=== PATIENT | male | born 1980 | race Caucasian/White ===

== ENCOUNTER 2020-09-01 19:26 | Inpatient (IN) | payer BC, SELFPAY ==
[2020-09-01 19:31] VITALS: BP 135/85; BP 147/94; PULSE 103; PULSE 92; RESP 16; TEMP 38.8; O2SAT 97; O2SAT 98; BMI 27.3
--- NOTE | 2020-09-01 19:36 | XR_ITS ---
EXAMINATION: CHEST 1 VIEW CLINICAL INFORMATION: Pain. COMPARISON: August 29, 2015. TECHNIQUE: An AP view of the chest is provided. FINDINGS: The cardiac silhouette is not enlarged. The mediastinal and hilar contours are unremarkable. There are neither pleural effusions nor pneumothoraces. There are no consolidations. The osseous structures are unremarkable. XR/XR chest 1V IMPRESSION: No evidence for acute disease.
--- NOTE | 2020-09-01 19:37 | ECG_ITS ---
Test Reason : ABDOMINAL PAIN Blood Pressure : / mmHG Vent. Rate : 092 BPM Atrial Rate : 092 BPM P-R Int : 130 ms QRS Dur : 094 ms QT Int : 326 ms P-R-T Axes : 033 035 061 degrees QTc Int : 403 ms Normal sinus rhythm Nonspecific T wave abnormality Abnormal ECG No previous ECGs available Referred By: Chandrika Brandt Electronically Signed By:HUY NEVES MD
--- NOTE | 2020-09-01 19:38 | PC.NURSE ---
PLANT ASSOCIATE at bedside.
--- NOTE | 2020-09-01 19:55 | PC.NURSE ---
Pt is CAOx4, speaking full sentences, ambulating with a null/steady gait, arrives by EMS. Skin warm, pink, dry. Second IV line established, all labs obtained including BCX x 2 and lactic. Pt providing urine sample, Covid swab obtained and sent for analysis. Pt resting in bed at this time, call vance within reach. Pt aware of plan to CT, continue to monitor.
[2020-09-01 19:56] LABS: MANUAL DIFF FLAG NO
[2020-09-01 20:00] LABS: Basophils Percent Auto 0.2 % (0-2); Eosinophils Absolute Auto 0.2 X10*3/uL (0.0-0.4); Eosinophils Percent Auto 0.9 % (0-4); Hematocrit 45.3 % (42-52); Hemoglobin 15.6 g/dl (14.0-18.0); Imm Gran Abs Auto 0.03 X10*3/uL (0.00-0.03); Imm Gran Pct Auto 0.2 % (0.0-0.4); Lymphocytes Absolute Auto 1.5 X10*3/uL (1.2-4.9); Lymphocytes Percent Auto 9.1 % (20-40); Mean Corpuscular HGB Conc 34.4 g/dl (31.0-36.0); Mean Corpuscular Hemoglobin 32.6 pg (27.0-33.0); Mean Corpuscular Volume 94.6 fL (80-98); Mean Platelet Volume 9.6 fL (9.4-12.4); Monocytes Absolute Auto 1.1 X10*3/uL (0.1-1.2); Monocytes Percent Auto 6.8 % (2-11); Neutrophils Absolute Auto 13.4 X10*3/uL (2.0-8.3); Neutrophils Percent Auto 82.8 % (45-73); Platelet Count 225 X10*3/uL (160-400); Red Blood Count 4.79 X10*6/uL (4.60-5.80); Red Cell Distribution Width 11.3 % (11.0-16.0); White Blood Count 16.1 X10*3/uL (4.8-10.8)
[2020-09-01] MEDS: Morphine Sulfate 4 MG/ML CARTRIDGE IVPUSH (20:02)
[2020-09-01] MEDS: Piperacillin Sodium/Tazobactam 3.375 GM in 0.9 % Sodium Chloride 50 ML IV (20:03)
[2020-09-01] MEDS: ondansetron HCL 4 MG/2 ML VIAL IVPUSH (20:03)
[2020-09-01] MEDS: 0.9 % Sodium Chloride 1,000 ML 30 ML IV (20:03)
[2020-09-01 20:12] LABS: Prothrombin Time 11.4 SEC (10.8-13.0)
[2020-09-01 20:14] LABS: Lactic Acid 1.9 mmol/L (0.5-2.0)
[2020-09-01 20:15] LABS: Partial Thromboplastin Time 34.8 SEC (24.1-38.0)
[2020-09-01 20:19] LABS: Appearance Urine CLEAR; Color Urine YELLOW; Glucose Urine UA NEG (NEG); Leukocyte Esterase Urine NEG (NEG); Nitrite Urine NEG (NEG); PH 7.5 (5.0-8.0); Urine Blood NEG (NEG); Urine Ketones NEG (NEG); Urine Protein NEG (NEG-TRACE)
[2020-09-01 20:20] LABS: Alanine Aminotransferase 23 U/L (0-40); Albumin Level 4.8 g/dL (3.5-5.0); Alkaline Phosphatase 82 U/L (39-117); Anion Gap 15 (12-20); Aspartate Amino Transferase 24 U/L (5-37); Bilirubin Direct 0.2 mg/dL (0.0-0.5); Bilirubin Total 0.6 mg/dL (0.0-1.0); Blood Urea Nitrogen 14 mg/dL (9-16); Calcium 9.5 mg/dL (8.4-10.2); Carbon Dioxide 26 mmol/L (22-29); Chloride 101 mmol/L (96-108); Creatinine Clr Calc Pharmacy 94.4; Estimated Glomerular Filt Rate > 60; Glucose Random 100 mg/dL (60-115); Lipase 11 U/L (8-78); Magnesium 1.7 mg/dL (1.6-2.6); Potassium 4.3 mmol/l (3.3-5.1); Sodium 138 mmol/L (135-145); Total Protein 7.1 g/dL (6.5-8.0)
--- NOTE | 2020-09-01 20:21 | ED.ABDPAIN ---
HPI - Abdominal Pain General Chief Complaint: Abdominal Pain Stated Complaint: ABDOMINAL PAIN Time Seen by Provider: 09/01/20 19:36 Source: patient Mode of arrival: ambulatory Limitations: no limitations History of Present Illness HPI narrative: 40-year-old male with no significant past medical history presents with 1 week of abdominal pain. Pain started to the left lower quadrant and gradually increased in intensity. Over the past 3 days the pain has gone across his lower abdomen and now has diffuse abdominal pain throughout. he denies chest pain or pressure, dysuria, hematuria, and edema. MD elicited complaint: abdominal pain Pertinent past history: none Onset (ago): week(s) (1) Pain Consistency: constant Location: diffuse, RLQ, LLQ and suprapubic Severity: severe Pain scale (0-10): 10 Quality: aching Exacerbating factors: eating, bowel movement and movement Relieving factors: nothing Associated symptoms: nausea, fever and chills Related Data Home Medications Medication Instructions Recorded Confirmed fenofibrate micronized 1 cap PO DAILY 09/01/20 09/01/20 Allergies Allergy/AdvReac Type Severity Reaction Status Date / Time amoxicillin [AMOXICILLIN] Allergy Unknown UNKNOWN, Verified 09/01/20 13:47 unsure, happened as a child Review of Systems Review of Systems Constitutional: No Weight loss, positive Fever, positive Chills, No Night Sweats, positive Fatigue, No Malaise ENT/Mouth: No Hearing loss, No Ear Pain, No Nasal Congestion, No Sinus Pain, No Hoarseness, No sore throat, No Rhinorrhea, No Swallowing Difficulty Eyes: No Eye Pain, No Swelling, No Redness, No Foreign Body, No Discharge, No Vision Changes Cardiovascular: No Chest Pain, No SOB, No Dyspnea on Exertion, No Orthopnea, No Edema, No Palpitations Respiratory: No Cough, No Sputum, No Wheezing, No Smoke Exposure, No Dyspnea Gastrointestinal: Positive Nausea, Positive Vomiting, no Diarrhea, positive abdominal Pain, No Hematochezia, No Melena Genitourinary: no irregular bleeding, No Dysuria, No Urinary Frequency, No Hematuria, No Urinary Incontinence, No Urgency, No Flank Pain, No Urinary Flow Changes, No Hesitancy Musculoskeletal: No joint pain, No Myalgias, No Joint Swelling Skin: No Skin Lesions, No rash Neuro: No Weakness, No Numbness, No Paresthesias, No Loss of Consciousness, No Dizziness, No Headache Psych: No Anxiety/Panic, No Depression, No SI/HI/AH/VH, No Social Issues Heme/Lymph: No Bruising, No Bleeding,No Lymphadenopathy Endocrine: No Polyuria, No Polydipsia, No Temperature Intolerance Yes all other systems are reviewed and are negative Physical Exam Vital Signs: Vital Signs: Last Vital Signs Temp 99.2 F 09/01/20 23:05 Pulse 78 09/01/20 23:05 Resp 16 09/01/20 23:05 BP 138/68 09/01/20 23:05 Pulse Ox 96 09/01/20 21:46 Body Mass Index 27.3 Appearance: Alert. Oriented X3. moderate distress, febrile. Eyes: Pupils equal, round and reactive to light. ENT: Pharynx normal. Neck: Normal inspection. Neck supple. CVS: tachycardic heart rate and rhythm. Pulses normal. Respiratory: No respiratory distress. Breath sounds normal. Abdomen: Soft and diffusely tender, guarding with rebound negative psoas McBurney. Skin: Skin warm and dry. Normal skin color. Normal skin turgor. Extremities: No lower extremity edema. Neuro: No motor deficit. No sensory deficit. Course Course Course Narrative: 40-year-old male with no significant past medical history presents with diffuse abdominal pain started on the low left lower quadrant and radiated to the right. He has had this pain for week which has gradually increased. he does meet sepsis criteria on arrival, CBC, Chem 7, lactic acid, antipyretics and pain management, we will initiate fluid resuscitation at 30 milliliters/kilogram, as patient's abdominal exam is highly suspicious for acute abdomen, diverticulitis we will give Zosyn, CT scan of abdomen and pelvis pending. White count 16, CT scan of abdomen shows diverticulitis. Discussion with hospitalist regarding plan of care, we will admit for sepsis and diverticulitis. Consultations Consultation #1: Lambert Talley Time: 21:54 MDM - Abdominal Pain Differential Diagnosis Differential diagnosis: Likely abdominal pain, acute appendicitis, bowel perforation, calculus of kidney, constipation, diverticulitis, gastroenteritis, gastritis, mesenteric ischemia and small bowel obstruction Medical Records Attestation: I reviewed the patient's medical records. Lab Data Attestation: I reviewed the patient's lab results. Result diagrams: 09/01/20 19:48 09/01/20 19:48 Labs: Lab Results 09/01/20 09/01/20 09/01/20 Range/Units 19:48 19:48 19:48 WBC 16.1 H (4.8-10.8) X10*3/uL RBC 4.79 (4.60-5.80) X10*6/uL Hgb 15.6 (14.0-18.0) g/dl Hct 45.3 (42-52) % MCV 94.6 (80-98) fL MCH 32.6 (27.0-33.0) pg MCHC 34.4 (31.0-36.0) g/dl RDW 11.3 (11.0-16.0) % Plt Count 225 (160-400) X10*3/uL MPV 9.6 (9.4-12.4) fL Immature Gran % (Auto) 0.2 (0.0-0.4) % Neut % (Auto) 82.8 H (45-73) % Lymph % (Auto) 9.1 L (20-40) % [place] % (Auto) 6.8 (2-11) % Eos % (Auto) 0.9 (0-4) % Baso % (Auto) 0.2 (0-2) % Lymph # (Auto) 1.5 (1.2-4.9) X10*3/uL [place] # (Auto) 1.1 (0.1-1.2) X10*3/uL Eos # (Auto) 0.2 (0.0-0.4) X10*3/uL Baso # (Auto) 0.0 (0.0-0.2) X10*3/uL Abs Immat Gran (auto) 0.03 (0.00-0.03) X10*3/uL Absolute Neuts (auto) 13.4 H (2.0-8.3) X10*3/uL Absolute Nucleated RBC 0.000 (0.0-0.012) X10*3/uL Nucleated RBC % (auto) 0.0 (0.0-0.2) /100WBC PT 11.4 (10.8-13.0) SEC INR 1.0 (0.9-1.1) APTT 34.8 (24.1-38.0) SEC Sodium 138 (135-145) mmol/L Potassium 4.3 (3.3-5.1) mmol/l Chloride 101 (96-108) mmol/L Carbon Dioxide 26 (22-29) mmol/L Anion Gap 15 (12-20) BUN 14 (9-16) mg/dL Creatinine 1.06 (0.5-1.4) mg/dL Estim Creat Clear Calc 94.4 Estimated GFR > 60 Random Glucose 100 (60-115) mg/dL Lactic Acid (0.5-2.0) mmol/L Calcium 9.5 (8.4-10.2) mg/dL Magnesium 1.7 (1.6-2.6) mg/dL Total Bilirubin 0.6 (0.0-1.0) mg/dL Direct Bilirubin 0.2 (0.0-0.5) mg/dL AST 24 (5-37) U/L ALT 23 (0-40) U/L Alkaline Phosphatase 82 (39-117) U/L Troponin I High Sens (<3.5-35.0) ng/L Total Protein 7.1 (6.5-8.0) g/dL Albumin 4.8 (3.5-5.0) g/dL Lipase 11 (8-78) U/L Urine Color Urine Appearance Urine pH (5.0-8.0) Ur Specific [place] (1.005-1.025) Urine Protein (NEG-TRACE) MG/DL Urine Glucose (UA) (NEG) MG/DL Urine Ketones (NEG) MG/DL Urine Blood (NEG) Urine Nitrite (NEG) Ur Leukocyte Esterase (NEG) Coronavirus (PCR) (Negative) Influenza Type A (PCR) (Negative) Influenza Type B (PCR) (Negative) RSV RNA Qual (PCR) (Negative) 09/01/20 09/01/20 09/01/20 Range/Units 19:48 19:48 19:48 WBC (4.8-10.8) X10*3/uL RBC (4.60-5.80) X10*6/uL Hgb (14.0-18.0) g/dl Hct (42-52) % MCV (80-98) fL MCH (27.0-33.0) pg MCHC (31.0-36.0) g/dl RDW (11.0-16.0) % Plt Count (160-400) X10*3/uL MPV (9.4-12.4) fL Immature Gran % (Auto) (0.0-0.4) % Neut % (Auto) (45-73) % Lymph % (Auto) (20-40) % [place] % (Auto) (2-11) % Eos % (Auto) (0-4) % Baso % (Auto) (0-2) % Lymph # (Auto) (1.2-4.9) X10*3/uL [place] # (Auto) (0.1-1.2) X10*3/uL Eos # (Auto) (0.0-0.4) X10*3/uL Baso # (Auto) (0.0-0.2) X10*3/uL Abs Immat Gran (auto) (0.00-0.03) X10*3/uL Absolute Neuts (auto) (2.0-8.3) X10*3/uL Absolute Nucleated RBC (0.0-0.012) X10*3/uL Nucleated RBC % (auto) (0.0-0.2) /100WBC PT (10.8-13.0) SEC INR (0.9-1.1) APTT (24.1-38.0) SEC Sodium (135-145) mmol/L Potassium (3.3-5.1) mmol/l Chloride (96-108) mmol/L Carbon Dioxide (22-29) mmol/L Anion Gap (12-20) BUN (9-16) mg/dL Creatinine (0.5-1.4) mg/dL Estim Creat Clear Calc Estimated GFR Random Glucose (60-115) mg/dL Lactic Acid 1.9 (0.5-2.0) mmol/L Calcium (8.4-10.2) mg/dL Magnesium (1.6-2.6) mg/dL Total Bilirubin (0.0-1.0) mg/dL Direct Bilirubin (0.0-0.5) mg/dL AST (5-37) U/L ALT (0-40) U/L Alkaline Phosphatase (39-117) U/L Troponin I High Sens < 3.5 (<3.5-35.0) ng/L Total Protein (6.5-8.0) g/dL Albumin (3.5-5.0) g/dL Lipase (8-78) U/L Urine Color Urine Appearance Urine pH (5.0-8.0) Ur Specific [place] (1.005-1.025) Urine Protein (NEG-TRACE) MG/DL Urine Glucose (UA) (NEG) MG/DL Urine Ketones (NEG) MG/DL Urine Blood (NEG) Urine Nitrite (NEG) Ur Leukocyte Esterase (NEG) Coronavirus (PCR) NEGATIVE (Negative) Influenza Type A (PCR) NEGATIVE (Negative) Influenza Type B (PCR) NEGATIVE (Negative) RSV RNA Qual (PCR) NEGATIVE (Negative) 09/01/20 Range/Units 20:08 WBC (4.8-10.8) X10*3/uL RBC (4.60-5.80) X10*6/uL Hgb (14.0-18.0) g/dl Hct (42-52) % MCV (80-98) fL MCH (27.0-33.0) pg MCHC (31.0-36.0) g/dl RDW (11.0-16.0) % Plt Count (160-400) X10*3/uL MPV (9.4-12.4) fL Immature Gran % (Auto) (0.0-0.4) % Neut % (Auto) (45-73) % Lymph % (Auto) (20-40) % [place] % (Auto) (2-11) % Eos % (Auto) (0-4) % Baso % (Auto) (0-2) % Lymph # (Auto) (1.2-4.9) X10*3/uL [place] # (Auto) (0.1-1.2) X10*3/uL Eos # (Auto) (0.0-0.4) X10*3/uL Baso # (Auto) (0.0-0.2) X10*3/uL Abs Immat Gran (auto) (0.00-0.03) X10*3/uL Absolute Neuts (auto) (2.0-8.3) X10*3/uL Absolute Nucleated RBC (0.0-0.012) X10*3/uL Nucleated RBC % (auto) (0.0-0.2) /100WBC PT (10.8-13.0) SEC INR (0.9-1.1) APTT (24.1-38.0) SEC Sodium (135-145) mmol/L Potassium (3.3-5.1) mmol/l Chloride (96-108) mmol/L Carbon Dioxide (22-29) mmol/L Anion Gap (12-20) BUN (9-16) mg/dL Creatinine (0.5-1.4) mg/dL Estim Creat Clear Calc Estimated GFR Random Glucose (60-115) mg/dL Lactic Acid (0.5-2.0) mmol/L Calcium (8.4-10.2) mg/dL Magnesium (1.6-2.6) mg/dL Total Bilirubin (0.0-1.0) mg/dL Direct Bilirubin (0.0-0.5) mg/dL AST (5-37) U/L ALT (0-40) U/L Alkaline Phosphatase (39-117) U/L Troponin I High Sens (<3.5-35.0) ng/L Total Protein (6.5-8.0) g/dL Albumin (3.5-5.0) g/dL Lipase (8-78) U/L Urine Color YELLOW Urine Appearance CLEAR Urine pH 7.5 (5.0-8.0) Ur Specific [place] 1.020 (1.005-1.025) Urine Protein NEG (NEG-TRACE) MG/DL Urine Glucose (UA) NEG (NEG) MG/DL Urine Ketones NEG (NEG) MG/DL Urine Blood NEG (NEG) Urine Nitrite NEG (NEG) Ur Leukocyte Esterase NEG (NEG) Coronavirus (PCR) (Negative) Influenza Type A (PCR) (Negative) Influenza Type B (PCR) (Negative) RSV RNA Qual (PCR) (Negative) Imaging Data Chest x-ray: Attestation: I personally reviewed and interpreted this imaging study as follows: Radiologist's impression: EXAMINATION: CHEST 1 VIEW CLINICAL INFORMATION: Pain. COMPARISON: August 29, 2015. TECHNIQUE: An AP view of the chest is provided. FINDINGS: The cardiac silhouette is not enlarged. The mediastinal and hilar contours are unremarkable. There are neither pleural effusions nor pneumothoraces. There are no consolidations. The osseous structures are unremarkable. XR/XR chest 1V IMPRESSION: No evidence for acute disease. CT scan - abdomen: Attestation: I personally reviewed and interpreted this imaging study as follows: Radiologist's impression: FINDINGS: LUNG BASES: The visualized lung bases are unremarkable. LIVER, GALLBLADDER, AND BILIARY TREE: The liver is normal in size, shape, and attenuation. No focal hepatic lesion or biliary ductal dilatation is present. The gallbladder is unremarkable with no evidence of radiopaque gallstones, gallbladder wall thickening, or obvious pericholecystic inflammatory changes. PANCREAS: Unremarkable. SPLEEN: Unremarkable. ADRENAL GLANDS: Unremarkable. KIDNEYS AND URETERS: The kidneys are normal in size, shape, and attenuation. No hydronephrosis, hydroureter, or calculi seen. No perinephric stranding. BLADDER: Unremarkable. GASTROINTESTINAL TRACT: There is scattered colonic diverticulosis more so in the sigmoid colon where there is focal colonic wall thickening and surrounding pericolonic inflammatory changes along the proximal sigmoid colon abutting a focally thickened diverticula. The appearance is most consistent with focal diverticulitis. No discrete abscess or drainable collection. No obstructive changes to the more proximal colon. Normal-appearing appendix. Visualized small bowel unremarkable. ABDOMINAL WALL: Abnormal appearance to the periumbilical region possibly related to prior umbilical hernia repair. Would clinically correlate with patient's history LYMPHOVASCULAR STRUCTURES: No lymphadenopathy. The aorta is unremarkable. PELVIC VISCERA: Unremarkable. OSSEOUS STRUCTURES: Unremarkable. CT/CT abdomen pelvis w con IMPRESSION: Scattered diverticulosis more so in the sigmoid colon where there is focal colonic wall thickening and pericolonic inflammatory changes along the proximal sigmoid colon in the region of a thickened diverticulum consistent with focal diverticulitis. No discrete drainable abscess or pericolonic collection at this time Critical Care Time Critical Care Time Critical Care Time: Yes Total Critical Care Time: 65 Attestation: I have personally provided critical care time exclusive of time spent on separately billable procedures. Time includes review of laboratory data, radiology results, discussion with consultants, and monitoring for potential decompensation. Interventions were performed as documented. Discharge Plan Discharge Clinical Impression: Diverticulitis Sepsis Qualifiers: Sepsis type: sepsis due to unspecified organism Sepsis acute organ dysfunction status: without acute organ dysfunction Qualified Code(s): A41.9 - Sepsis, unspecified organism Patient Disposition: Admitted As Inpatient [facility] Past Medical History Attestation statement: The following information was validated with the patient. Medical History (Updated 09/01/20 @ 22:32 by Chandrika Brandt NP) Hernia Surgical History History of fracture of nose History of umbilical hernia repair Family History Family History Father Depression Mother Brain tumor Brother No problems noted. Brother No problems noted. Social History Social History Advance Directives: No Advance Directives Information Provided: Yes
[2020-09-01 20:22] LABS: Troponin-I High Sensitivity < 3.5 ng/L (<3.5-35.0)
--- NOTE | 2020-09-01 20:47 | CT_ITS ---
EXAMINATION: CT ABDOMEN AND PELVIS WITH CONTRAST CLINICAL INFORMATION: left lower quadrant abdominal pain, guarding COMPARISON: None. TECHNIQUE: Multidetector volumetric imaging was performed from the superior aspect of the liver through the pubic symphysis following administration of 85 cc of Omnipaque intravenous contrast Sagittal and coronal reformatted images were obtained on the technologist workstation.. This CT examination was performed using dose optimization techniques as appropriate, variously including the following: *Automated exposure control *Adjustment of mA and/or kV according to patient size (this includes techniques or standardized protocols for targeted exams where dose is matched to indication/reason for exam; i.e. extremities or head) *Use of iterative reconstruction technique DLP: 569 mGy-cm FINDINGS: LUNG BASES: The visualized lung bases are unremarkable. LIVER, GALLBLADDER, AND BILIARY TREE: The liver is normal in size, shape, and attenuation. No focal hepatic lesion or biliary ductal dilatation is present. The gallbladder is unremarkable with no evidence of radiopaque gallstones, gallbladder wall thickening, or obvious pericholecystic inflammatory changes. PANCREAS: Unremarkable. SPLEEN: Unremarkable. ADRENAL GLANDS: Unremarkable. KIDNEYS AND URETERS: The kidneys are normal in size, shape, and attenuation. No hydronephrosis, hydroureter, or calculi seen. No perinephric stranding. BLADDER: Unremarkable. GASTROINTESTINAL TRACT: There is scattered colonic diverticulosis more so in the sigmoid colon where there is focal colonic wall thickening and surrounding pericolonic inflammatory changes along the proximal sigmoid colon abutting a focally thickened diverticula. The appearance is most consistent with focal diverticulitis. No discrete abscess or drainable collection. No obstructive changes to the more proximal colon. Normal-appearing appendix. Visualized small bowel unremarkable. ABDOMINAL WALL: Abnormal appearance to the periumbilical region possibly related to prior umbilical hernia repair. Would clinically correlate with patient's history LYMPHOVASCULAR STRUCTURES: No lymphadenopathy. The aorta is unremarkable. PELVIC VISCERA: Unremarkable. OSSEOUS STRUCTURES: Unremarkable. CT/CT abdomen pelvis w con IMPRESSION: Scattered diverticulosis more so in the sigmoid colon where there is focal colonic wall thickening and pericolonic inflammatory changes along the proximal sigmoid colon in the region of a thickened diverticulum consistent with focal diverticulitis. No discrete drainable abscess or pericolonic collection at this time
--- NOTE | 2020-09-01 20:57 | PC.NURSE ---
Pt off to CT on hospital bed.
[2020-09-01] MEDS: iohexoL 350 MG/ML 100 ML INFUS..BTL IV (21:07)
[2020-09-01 21:17] LABS: Influenza A PCR NEGATIVE (Negative); Influenza B PCR NEGATIVE (Negative); Resp Syncy Virus RNA Qual PCR NEGATIVE (Negative); SARS COV2 PCR INHOUSE NEGATIVE (Negative)
[2020-09-01 21:46] VITALS: BP 137/77; PULSE 88; RESP 16; TEMP 38; O2SAT 96
[2020-09-01] MEDS: Acetaminophen 325 MG TABLET 650 MG PO (21:55)
[2020-09-01] MEDS: Ketorolac Tromethamine 30 MG/ML VIAL IVPUSH (21:55)
[2020-09-01] MEDS: metroNIDAZOLE/NS 500 MG/100 ML PIGGYBACK 100 MG IV (22:05)
--- NOTE | 2020-09-01 22:06 | PC.NURSE ---
Flagyl infusing per EMAR. [facility] Rec completed at bedside with pt.
--- NOTE | 2020-09-01 22:42 | PC.NURSE ---
SCANNER SUPERVISOR at bedside. Plan for IV Dilaudid. Per SCANNER SUPERVISOR, verbal order to DC Flagyl as Flagyl and Zosyn have the same coverage, pt previously receiving Zosyn.
--- NOTE | 2020-09-01 23:03 | PC.NURSE ---
Pt ambulating to the bathroom per request, pt ambulating with a null/steady gait.
[2020-09-01 23:05] VITALS: BP 138/68; PULSE 78; RESP 16; TEMP 37.3
[2020-09-01] MEDS: HYDROmorphone HCl 1 MG/ML SYRINGE IVPUSH (23:17)
--- NOTE | 2020-09-01 23:21 | PC.NURSE ---
Pt medicated per EMAR with Dilaudid for 7/10 pain to LLQ. Pt aware and agreeable of plan to admit.
[2020-09-02] VITALS (14 sets, daily range): BP systolic 116–146; BP diastolic 70–85; PULSE 63–71; RESP 15–20; TEMP 36.5–37; O2SAT 94–97
[2020-09-02] MEDS: HYDROmorphone HCl 2 MG/ML VIAL IVPUSH (02:08)
--- NOTE | 2020-09-02 02:11 | PC.NURSE ---
Pt medicated with Dilaudid per EMAR, awaiting bed assignment.
--- NOTE | 2020-09-02 02:56 | PC.NURSE ---
Hospitalist at bedside for eval. Pt awaiting room assignment.
--- NOTE | 2020-09-02 03:06 | PM.IMHP ---
History of Present Illness Date of Service: 09/02/20 Chief Complaint: Abdominal pain 40 y/o male with PMHx of hypertriglyceridemia who presented from home due to abdominal pain. Per history provided by the patient, for the past 1 week has been having on and off pain, pressure like, in the left lower quadrant of the abdominal area, radiating to the RLQ, which has been getting worse for what decided to come to the ED for further evaluation. Denies any chest pain, SOB, nausea, vomiting or diarrhea. Does report occasional episodes of chilss but no fever. On presentation to the ED BP stable, HR of 92 and fever of 101.9, WBC of [address] abdomen showing focal diverticulitis near the sigmoid colon. One dose of Zosyn given per ED attending and no evidence of allergic reaction was noted. Decision for admission given. Patient seen and examined at the bedside, laying down in bed in no acute distress. ROS as above otherwise negative. Physical exam positive for mild tenderness in LLQ area, no rebound tenderness or masses. PMHX: Hypertriglyceridemia PSX: none Toxic habits: Remote smoker, Social alcohol drinker, No hx of IVDA Review of Systems Constitutional: Constitutional: Reports other (chills) Gastrointestinal: Gastrointestinal: Reports abdominal pain PMFSH Medical History Hernia Functional capacity: independent ambulation Family History Father Depression Mother Brain tumor Brother No problems noted. Brother No problems noted. Surgical History History of fracture of nose History of umbilical hernia repair Social History Advance Directives: No Advance Directives Information Provided: Yes Meds Allergies Allergy/AdvReac Type Severity Reaction Status Date / Time amoxicillin [AMOXICILLIN] Allergy Unknown UNKNOWN, Verified 09/01/20 13:47 unsure, happened as a child Home Medications Medication Instructions Recorded Confirmed Type fenofibrate micronized 1 cap PO DAILY 09/01/20 09/01/20 History Physical Exam Vital Signs and Narrative: Vital Signs: Last Vital Signs Temp 98 F 09/02/20 02:07 Pulse 71 09/02/20 02:52 Resp 16 09/02/20 02:52 BP 146/85 H 09/02/20 02:52 Pulse Ox 97 09/02/20 02:52 Body Mass Index 27.3 Const: General: cooperative, comfortable and no acute distress Orientation/consciousness: oriented to person, oriented to place and oriented to time HENMT: Head: Yes normal to inspection Eyes: General: appearance normal, both eyes and all related structures Neck: Yes normal visual inspection Chest: Chest palpation & inspection: normal inspection of the chest Resp: Effort & Inspection: normal respiratory effort Auscultation: clear to auscultation bilaterally Cardio: Jugular venous distension: no JVD Rate: regular rate Rhythm: regular rhythm Heart sounds: S1 normal heart sound present and S2 normal heart sound present GI: Inspection: Yes normal to inspection Palpation (GI): Other GI palpation findings present (LLQ tenderness ) Skin: General skin exam: no rashes or lesions noted Neuro: General: oriented to person, oriented to place and oriented to time Cognition (Neuro): normal cognition Extrem: General: Yes normal to inspection Results Labs CBC and Chem 7: 09/01/20 19:48 09/01/20 19:48 Labs: Laboratory Results - last 24 hr 09/01/20 09/01/20 09/01/20 19:48 19:48 19:48 MCV 94.6 MCH 32.6 MCHC 34.4 RDW 11.3 Plt Count 225 MPV 9.6 Immature Gran % (Auto) 0.2 Neut % (Auto) 82.8 H Lymph % (Auto) 9.1 L [place] % (Auto) 6.8 Eos % (Auto) 0.9 Baso % (Auto) 0.2 Lymph # (Auto) 1.5 [place] # (Auto) 1.1 Eos # (Auto) 0.2 Baso # (Auto) 0.0 Abs Immat Gran (auto) 0.03 Absolute Neuts (auto) 13.4 H Absolute Nucleated RBC 0.000 Nucleated RBC % (auto) 0.0 PT 11.4 INR 1.0 APTT 34.8 Anion Gap 15 Estim Creat Clear Calc 94.4 Estimated GFR > 60 Random Glucose 100 Lactic Acid Calcium 9.5 Magnesium 1.7 Total Bilirubin 0.6 Direct Bilirubin 0.2 AST 24 ALT 23 Alkaline Phosphatase 82 Troponin I High Sens Total Protein 7.1 Albumin 4.8 Lipase 11 Urine Color Urine Appearance Urine pH Ur Specific [place] Urine Protein Urine Glucose (UA) Urine Ketones Urine Blood Urine Nitrite Ur Leukocyte Esterase Coronavirus (PCR) Influenza Type A (PCR) Influenza Type B (PCR) RSV RNA Qual (PCR) 09/01/20 09/01/20 09/01/20 19:48 19:48 19:48 MCV MCH MCHC RDW Plt Count MPV Immature Gran % (Auto) Neut % (Auto) Lymph % (Auto) [place] % (Auto) Eos % (Auto) Baso % (Auto) Lymph # (Auto) [place] # (Auto) Eos # (Auto) Baso # (Auto) Abs Immat Gran (auto) Absolute Neuts (auto) Absolute Nucleated RBC Nucleated RBC % (auto) PT INR APTT Anion Gap Estim Creat Clear Calc Estimated GFR Random Glucose Lactic Acid 1.9 Calcium Magnesium Total Bilirubin Direct Bilirubin AST ALT Alkaline Phosphatase Troponin I High Sens < 3.5 Total Protein Albumin Lipase Urine Color Urine Appearance Urine pH Ur Specific [place] Urine Protein Urine Glucose (UA) Urine Ketones Urine Blood Urine Nitrite Ur Leukocyte Esterase Coronavirus (PCR) NEGATIVE Influenza Type A (PCR) NEGATIVE Influenza Type B (PCR) NEGATIVE RSV RNA Qual (PCR) NEGATIVE 09/01/20 20:08 MCV MCH MCHC RDW Plt Count MPV Immature Gran % (Auto) Neut % (Auto) Lymph % (Auto) [place] % (Auto) Eos % (Auto) Baso % (Auto) Lymph # (Auto) [place] # (Auto) Eos # (Auto) Baso # (Auto) Abs Immat Gran (auto) Absolute Neuts (auto) Absolute Nucleated RBC Nucleated RBC % (auto) PT INR APTT Anion Gap Estim Creat Clear Calc Estimated GFR Random Glucose Lactic Acid Calcium Magnesium Total Bilirubin Direct Bilirubin AST ALT Alkaline Phosphatase Troponin I High Sens Total Protein Albumin Lipase Urine Color YELLOW Urine Appearance CLEAR Urine pH 7.5 Ur Specific [place] 1.020 Urine Protein NEG Urine Glucose (UA) NEG Urine Ketones NEG Urine Blood NEG Urine Nitrite NEG Ur Leukocyte Esterase NEG Coronavirus (PCR) Influenza Type A (PCR) Influenza Type B (PCR) RSV RNA Qual (PCR) Imaging Radiologist's Impressions: Impressions Chest X-Ray 09/01/20 19:36 IMPRESSION: No evidence for acute disease. Abdomen/Pelvis CT 09/01/20 20:47 IMPRESSION: Scattered diverticulosis more so in the sigmoid colon where there is focal colonic wall thickening and pericolonic inflammatory changes along the proximal sigmoid colon in the region of a thickened diverticulum consistent with focal diverticulitis. No discrete drainable abscess or pericolonic collection at this time Assessment and Plan (1) Sepsis: Qualifiers: Sepsis acute organ dysfunction status: without acute organ dysfunction Sepsis type: sepsis due to unspecified organism Qualified Code(s): A41.9 - Sepsis, unspecified organism Status: Acute Keep MAP >65 mmHg Continue with aggressive IV hydration lactate normal Continue with Levaquin and flagyl for gram neg and anaerobic coverage Advance diet as tolerated Serial abdominal exam Infectious disease consult in the am Gastroenterology consult in the am (2) Diverticulitis: Status: Acute plan as above
--- NOTE | 2020-09-02 03:29 | PC.NURSE ---
IVF infusing per EMAR @ 75 ml/hr. Pt previously receiving a total of 3 liters per [employer]ENT[employer] request due to septic protocol. Continue to monitor.
[2020-09-02] MEDS: 0.9 % Sodium Chloride 1,000 ML 75 ML IVCONT ×2 (03:50→16:00)
--- NOTE | 2020-09-02 04:01 | PC.NURSE ---
Pt sleeping in bed at this time in NAD, visible chest rise noted. Continue to monitor.
[2020-09-02] MEDS: Morphine Sulfate 2 MG/ML CARTRIDGE 1 MG IVPUSH (05:16)
--- NOTE | 2020-09-02 05:19 | PC.NURSE ---
Addendum entered by Marni Hughes 09/02/20 05:34: Pt aware of plan to board in the ED until AM. Original Note: Pt medicated for 5/10 pain to LLQ with Morphine per EMAR. VSS. IVF infusing per EMAR. Continue to monitor.
--- NOTE | 2020-09-02 06:35 | PC.NURSE ---
Pt finally sleeping in bed at this time, visible chest rise noted. Pt resting in NAD in POC. Continue to monitor, awaiting room assignment.
--- NOTE | 2020-09-02 08:00 | PC.NURSE ---
pt resting in the stretcher, alert and oriented, skin pwd, respirations even and unlabored. pt reports left lower abd pain 6/10 at this time, denies nausea, vs stable, pt aware of plan to admitt just awaiting room asignment
[2020-09-02] MEDS: levoFLOXacin/D5W 500 MG/100 ML PIGGYBACK 100 MG IV (08:46)
[2020-09-02] MEDS: metroNIDAZOLE/NS 500 MG/100 ML PIGGYBACK 100 MG IV ×2 (11:20→20:23)
[2020-09-02] MEDS: Morphine Sulfate 2 MG/ML CARTRIDGE IVPUSH ×3 (11:20→20:25)
--- NOTE | 2020-09-02 11:52 | PC.NURSE ---
pt reports feeling better after the morphine, pain 4/10
--- NOTE | 2020-09-02 11:54 | PC.NURSE ---
report given to suzi velazquez on med/surg
[2020-09-02] MEDS: Heparin Sodium,Porcine 5,000 UNIT/ML VIAL 5000 UNIT SUBCUT ×2 (12:51→20:23)
[2020-09-02 13:02] LABS: C Reactive Protein 1.17 mg/dL (< or = 0.50); Gamma Glutamyl Transpeptidase 83 U/L (11-51); Lactate Dehydrogenase 156 U/L (118-273)
[2020-09-02 13:28] LABS: MANUAL DIFF FLAG NO
[2020-09-02 13:47] LABS: Basophils Percent Auto 0.2 % (0-2); Eosinophils Absolute Auto 0.2 X10*3/uL (0.0-0.4); Eosinophils Percent Auto 2.4 % (0-4); Hematocrit 41.3 % (42-52); Imm Gran Abs Auto 0.04 X10*3/uL (0.00-0.03); Imm Gran Pct Auto 0.5 % (0.0-0.4); Lymphocytes Absolute Auto 1.3 X10*3/uL (1.2-4.9); Lymphocytes Percent Auto 14.4 % (20-40); Mean Corpuscular HGB Conc 33.9 g/dl (31.0-36.0); Mean Corpuscular Hemoglobin 32.2 pg (27.0-33.0); Mean Corpuscular Volume 94.9 fL (80-98); Mean Platelet Volume 9.9 fL (9.4-12.4); Monocytes Absolute Auto 0.6 X10*3/uL (0.1-1.2); Monocytes Percent Auto 7.2 % (2-11); Neutrophils Absolute Auto 6.6 X10*3/uL (2.0-8.3); Neutrophils Percent Auto 75.3 % (45-73); Platelet Count 195 X10*3/uL (160-400); Red Blood Count 4.35 X10*6/uL (4.60-5.80); Red Cell Distribution Width 11.2 % (11.0-16.0); White Blood Count 8.8 X10*3/uL (4.8-10.8)
[2020-09-02 14:12] LABS: Anion Gap 14 (12-20); Blood Urea Nitrogen 11 mg/dL (9-16); Carbon Dioxide 21 mmol/L (22-29); Chloride 107 mmol/L (96-108); Creatinine Clr Calc Pharmacy 111.2; Estimated Glomerular Filt Rate > 60; Glucose Random 80 mg/dL (60-115); Sodium 138 mmol/L (135-145)
[2020-09-02 14:13] LABS: Calcium 8.6 mg/dL (8.4-10.2)
--- NOTE | 2020-09-02 15:04 | MHC.CM.PN ---
PATIENT IS FULLY INDEPENDENT WITH HIS ADLS. NO DME OR VNA SERVICES, AND IS EMPLOYED VICE PRESIDENT [employer]. HIS PCP IS DR NAVARRO OF [facility] [place]. UPDATE MADE IN [employer]. PATIENT MAY NEED A RETURN TO WORK NOTE, DEPENDING ON LENGTH OF STAY HERE. PATIENT ASSIGNED HCP (HIS FATHER, FREDRICK.) COPY NOW IN CHART.
--- NOTE | 2020-09-02 16:07 | PM.GICN ---
History of Present Illness Data of Consult Service Date: 09/02/20 Requesting physician: Thea Talley Primary Care Provider: 40 yo male who had experienced, initially, nonspecific abdominal symptoms for a few days, presented to the ER on day of admission due to intense lower left abdominal pain and sensation of bladder pressure. In the ER, he had a temp of 101.[address] was suspicious for Diverticulitis. He has had no similar problems in the past. No clear preceding event. No constipation, straining, etc. Review of Systems Review of Systems: Yes all other systems are reviewed and are negative Cardiovascular: Cardiovascular: Denies chest pain, Denies rapid heart rate and Denies dyspnea Respiratory: Respiratory: Denies chest congestion, Denies cough and Denies dyspnea Gastrointestinal: Gastrointestinal: Denies tenesmus, Denies change in stool character, Denies early satiety, Denies heartburn and Denies diarrhea PMFSH Past Medical History Medical History Hernia Functional capacity: independent ambulation Family History Family History Father Depression Mother Brain tumor Brother No problems noted. Brother No problems noted. Surgical History Surgical History History of fracture of nose History of umbilical hernia repair Social History Social History Household Members: Family Housing: Apartment Smoking Status: Former smoker Tobacco Type: Cigarette service: No Current occupational status: employed Meds Allergies Allergy/AdvReac Type Severity Reaction Status Date / Time amoxicillin [AMOXICILLIN] Allergy Unknown UNKNOWN, Verified 09/01/20 13:47 unsure, happened as a child Home Medications Medication Instructions Recorded Confirmed Type fenofibrate micronized 1 cap PO DAILY 09/01/20 09/01/20 History Physical Exam Vital Signs: Vital Signs: Last Vital Signs Temp 98.1 F 09/02/20 15:25 Pulse 68 09/02/20 15:25 Resp 18 09/02/20 15:25 BP 133/74 09/02/20 15:25 Pulse Ox 97 09/02/20 15:25 Body Mass Index 27.3 Const: General: cooperative, healthy appearing and alert Nutritional Appearance: overweight Orientation/consciousness: patient oriented x3 Eyes: Pupils: Equal, round and reactive pupils present Resp: Effort & Inspection: normal respiratory effort and able to speak in complete sentences Auscultation: clear to auscultation bilaterally Cardio: Rate: regular rate Rhythm: regular rhythm GI: Inspection: Yes normal to inspection Palpation (GI): Soft to palpation, Tenderness to palpation present (GI) (slight ) in the LLQ (slight) and no masses Auscultation: normal bowel sounds Rectal Exam - Male: Yes deferred Neuro: General: patient oriented x3 Cranial nerves: Yes Equal, round and reactive pupils present Extrem: General: No calf tenderness, No clubbing, No cyanosis and No edema Results Labs CBC & Chem 7: 09/02/20 13:10 09/02/20 13:10 Labs: Short CBC 09/01/20 09/02/20 Range/Units 19:48 13:10 WBC 16.1 H 8.8 (4.8-10.8) X10*3/uL Hgb 15.6 14.0 (14.0-18.0) g/dl Hct 45.3 41.3 L (42-52) % Plt Count 225 195 (160-400) X10*3/uL BMP 09/01/20 09/02/20 19:48 13:10 Sodium 138 138 Potassium 4.3 4.0 Chloride 101 107 Carbon Dioxide 26 21 L BUN 14 11 Creatinine 1.06 0.90 Calcium 9.5 8.6 D Liver Function 09/01/20 Range/Units 19:48 Total Bilirubin 0.6 (0.0-1.0) mg/dL Direct Bilirubin 0.2 (0.0-0.5) mg/dL GGT 83 H (11-51) U/L AST 24 (5-37) U/L ALT 23 (0-40) U/L Alkaline Phosphatase 82 (39-117) U/L Albumin 4.8 (3.5-5.0) g/dL Urine 09/01/20 Range/Units 20:08 Urine Color YELLOW Urine Appearance CLEAR Urine pH 7.5 (5.0-8.0) Ur Specific [place] 1.020 (1.005-1.025) Urine Protein NEG (NEG-TRACE) MG/DL Urine Glucose (UA) NEG (NEG) MG/DL CRP 1.17 Assessment and Plan (1) Diverticulitis: Problem details: Likely diverticulitis Review of CT shows changes in the sigmoid colon with thickened wall and area surrounding a diverticulum that is thickened but with no abscess or obstruction present. Status: Acute Presumptive Sigmoid Diverticulitis--Cont IV antibx review cultures daily for sensitivity if appropriate. Length of treatment dependent on clinical course Would allow patient to have Full liquid diet as tolerated unless pain intensifies when he eats. Will follow. Patient should follow up in our office after discharge in 2-4 weeks--Can be Televisit.
--- NOTE | 2020-09-02 16:13 | W.PM.IDCN ---
History of Present Illness Data of Consult Service Date: 09/02/20 Primary Care Provider: Unknown Physician HPI Reason for consult: abdominal discomfort He presents with pain in abdomen LLQ radiating to back He has no fever or chills CT scan shows diverticultis Review of Systems Review of Systems: Yes all other systems are reviewed and are negative Gastrointestinal: Gastrointestinal: Reports abdominal pain PMFSH Past Medical History Medical History (Updated 09/18/20 @ 11:29 by Yennifer Schilling MD) Diverticulitis of sigmoid colon Hernia Hypertriglyceridemia Insomnia Left lower quadrant abdominal pain Functional capacity: independent ambulation Family History Family History Father Depression Mother Brain tumor Brother No problems noted. Brother No problems noted. Surgical History Surgical History History of fracture of nose History of umbilical hernia repair Social History Social History Household Members: Family Housing: Apartment Smoking Status: Former smoker Tobacco Type: Cigarette service: No Current occupational status: employed Meds Allergies Allergy/AdvReac Type Severity Reaction Status Date / Time amoxicillin [AMOXICILLIN] Allergy Unknown UNKNOWN, Verified 09/18/20 11:15 unsure, happened as a child Home Medications Medication Instructions Recorded Confirmed Type eszopiclone 2 mg tablet 2 mg PO BEDTIME 09/18/20 09/18/20 History flu vac [id number] 36mos up(PF) ml IM 09/18/20 09/18/20 History glucosamine sulfate 500 mg tablet 500 mg PO DAILY 09/18/20 09/18/20 History magnesium oxide 250 mg PO DAILY 09/18/20 09/18/20 History Physical Exam Vital Signs: Vital Signs: Last Vital Signs Temp 98.1 F 09/02/20 15:25 Pulse 68 09/02/20 15:25 Resp 18 09/02/20 15:25 BP 133/74 09/02/20 15:25 Pulse Ox 97 09/02/20 15:25 Body Mass Index 27.3 Const: General: healthy appearing Orientation/consciousness: oriented to person, oriented to place and oriented to time HENMT: Head: Yes normal to inspection Mouth: Normal oral and palatal mucosa present Eyes: General: appearance normal, both eyes and all related structures Resp: Effort & Inspection: normal respiratory effort Cardio: Rate: regular rate Rhythm: regular rhythm GI: Inspection: Yes normal to inspection Palpation (GI): nontender Skin: General skin exam: no rashes or lesions noted Neuro: General: oriented to person, oriented to place and oriented to time Extrem: General: Yes normal to inspection Assessment and Plan (1) Diverticulitis: Problem details: Likely diverticulitis Review of CT shows changes in the sigmoid colon with thickened wall and area surrounding a diverticulum that is thickened but with no abscess or obstruction present. Status: Acute Would finish 7-10 days Levaquin and Flagyl (2) Sepsis: Qualifiers: Sepsis acute organ dysfunction status: without acute organ dysfunction Sepsis type: sepsis due to unspecified organism Qualified Code(s): A41.9 - Sepsis, unspecified organism Status: Resolved Results Labs CBC & Chem 7: 09/02/20 13:10 09/02/20 13:10 Labs: Short CBC 09/01/20 09/02/20 Range/Units 19:48 13:10 WBC 16.1 H 8.8 (4.8-10.8) X10*3/uL Hgb 15.6 14.0 (14.0-18.0) g/dl Hct 45.3 41.3 L (42-52) % Plt Count 225 195 (160-400) X10*3/uL BMP 09/01/20 09/02/20 19:48 13:10 Sodium 138 138 Potassium 4.3 4.0 Chloride 101 107 Carbon Dioxide 26 21 L BUN 14 11 Creatinine 1.06 0.90 Calcium 9.5 8.6 D Liver Function 09/01/20 Range/Units 19:48 Total Bilirubin 0.6 (0.0-1.0) mg/dL Direct Bilirubin 0.2 (0.0-0.5) mg/dL GGT 83 H (11-51) U/L AST 24 (5-37) U/L ALT 23 (0-40) U/L Alkaline Phosphatase 82 (39-117) U/L Albumin 4.8 (3.5-5.0) g/dL Urine 09/01/20 Range/Units 20:08 Urine Color YELLOW Urine Appearance CLEAR Urine pH 7.5 (5.0-8.0) Ur Specific [place] 1.020 (1.005-1.025) Urine Protein NEG (NEG-TRACE) MG/DL Urine Glucose (UA) NEG (NEG) MG/DL
[2020-09-03 03:41] VITALS: BP 127/78; PULSE 68; RESP 20; TEMP 36.4; O2SAT 95
[2020-09-03] MEDS: 0.9 % Sodium Chloride 1,000 ML 75 ML IVCONT (05:28)
[2020-09-03 07:55] VITALS: BP 120/85; PULSE 62; RESP 19; TEMP 36.7; O2SAT 95
[2020-09-03 08:18] VITALS: RESP 18
[2020-09-03] MEDS: Morphine Sulfate 2 MG/ML CARTRIDGE IVPUSH (08:18)
[2020-09-03] MEDS: levoFLOXacin/D5W 500 MG/100 ML PIGGYBACK 100 MG IV (08:18)
--- NOTE | 2020-09-03 09:05 | P.DS_ITS ---
DS: Providers Provider Date of admission: 09/02/20 03:05 Primary care physician: Unknown Physician Consults: 09/02/20 12:19 Consult to Gastroenterology Routine Consulting Provider: [facility] [place] G[facility]ology [facility] Reason for consultation: diverticulitis Has provider been notified: No Consult to Infectious Diseases Routine Consulting Provider: Xiomy Slater Reason for consultation: sepsis Has provider been notified: No DS: Diagnosis Discharge Diagnosis (1) Diverticulitis: Status: Acute Problem details: Likely diverticulitis Review of CT shows changes in the sigmoid colon with thickened wall and area surrounding a diverticulum that is thickened but with no abscess or obstruction present. DS: Medications Discharge Medications Home Medications: Home Medications Medication Instructions Recorded Confirmed fenofibrate micronized 1 cap PO DAILY 09/01/20 09/01/20 Previous Rx's Medication Instructions Recorded levofloxacin 500 mg PO DAILY 5 Days #6 tab 09/03/20 metronidazole [Flagyl] 500 mg PO Q8H #14 tab 09/03/20 DS: Summary Hospital Course Hospital Course: 40-year-old male who is otherwise healthy with presented to the emergency room with abdominal pain. Workup revealed acute diverticulitis on the CT [place] [address]. Patient was hydrated given IV antibiotics with Flagyl and Levaquin. Over the course of hospitalization he has significantly improved the pain has significantly improved. He is tolerating regular diet WBC has normalized and he will be discharged home with p.o. Flagyl and Levaquin per Infectious Disease Dr. Slater's advice. He is advised to follow up with primary care physician upon discharge. Status at Discharge Functional status at discharge: independent ambulation Time Spent with Patient Time attestation: Total time spent providing and/or coordinating discharge services: Discharge coordination time: Greater than 30 minutes Physical Exam Vital Signs: Vital Signs: Last Vital Signs Temp 98.1 F 09/03/20 07:55 Pulse 62 09/03/20 07:55 Resp 18 09/03/20 08:18 BP 120/85 09/03/20 07:55 Pulse Ox 95 09/03/20 07:55 Body Mass Index 27.3 General: AO X 3, no acute distress Resp: normal resp effort CVS: RRR GI: +BS, minimal lower abd tenderness Skin: No rash Neuro: motor grossly intact Psych: appropriate affect DS: Data Data Completed and Pending Labs on day of discharge: 09/01/20 19:36 XR chest 1V Stat 09/01/20 19:37 ECG 12 lead EKG Stat EKG Documentation DIRECTED 09/01/20 19:38 Morphine Sulfate 4 mg IVPUSH ONCE ONE Piperacillin Sodium/Tazobactam [Zosyn] 3.375 gm 0.9 % Sodium Chloride [Ns] 50 ml IV ONCE ondansetron HCL [Zofran] 4 mg IVPUSH ONCE ONE 09/01/20 19:39 0.9 % Sodium Chloride [Ns] 1,000 ml IV 30 mls/hr 09/01/20 19:48 Basic Metabolic Panel Stat C Reactive Protein Stat Complete Blood Count Auto Diff Stat Gamma Glutamyl Transpeptidase Stat Lactate Dehydrogenase Stat Lactic Acid Stat Lipase Stat Liver Panel Stat Magnesium Stat Partial Thromboplastin Time Stat Prothrombin Time INR Stat SARS-CoV2/FLU/RSV Stat Troponin-I High Sensitivity Stat 09/01/20 19:58 Piperacillin Sodium/Tazobactam [Zosyn] 3.375 gm IV .STK-MED ONE 09/01/20 20:08 UA CC w/rflx Micro + Cult Stat 09/01/20 20:47 CT abdomen pelvis w con Stat 09/01/20 21:06 iohexoL 350 MG/ML [Omnipaque 350 MG/ML] 100 ml IV ONCE ONE 09/01/20 21:47 Acetaminophen [Tylenol] 650 mg PO ONCE ONE Ketorolac Tromethamine [Toradol] 30 mg IVPUSH ONCE ONE 09/01/20 21:56 metroNIDAZOLE/NS [Flagyl] 500 mg in 100 ml IV ONCE 09/01/20 23:11 HYDROmorphone HCl [Dilaudid] 1 mg IVPUSH ONCE ONE 09/02/20 01:42 HYDROmorphone HCl [Dilaudid] 2 mg IVPUSH ONCE ONE 09/02/20 03:02 Transfer Order Routine 09/02/20 05:03 Morphine Sulfate 1 mg IVPUSH ONCE ONE 09/02/20 12:37 Add Laboratory Test Urgent 09/02/20 13:10 Basic Metabolic Panel Routine Complete Blood Count Auto Diff Routine Laboratory Last Values WBC 8.8 X10*3/uL (4.8-10.8) 09/02/20 13:10 RBC 4.35 X10*6/uL (4.60-5.80) L 09/02/20 13:10 Hgb 14.0 g/dl (14.0-18.0) 09/02/20 13:10 Hct 41.3 % (42-52) L 09/02/20 13:10 MCV 94.9 fL (80-98) 09/02/20 13:10 MCH 32.2 pg (27.0-33.0) 09/02/20 13:10 MCHC 33.9 g/dl (31.0-36.0) 09/02/20 13:10 RDW 11.2 % (11.0-16.0) 09/02/20 13:10 Plt Count 195 X10*3/uL (160-400) 09/02/20 13:10 MPV 9.9 fL (9.4-12.4) 09/02/20 13:10 Immature Gran % (Auto) 0.5 % (0.0-0.4) H 09/02/20 13:10 Neut % (Auto) 75.3 % (45-73) H 09/02/20 13:10 Lymph % (Auto) 14.4 % (20-40) L 09/02/20 13:10 [place] % (Auto) 7.2 % (2-11) 09/02/20 13:10 Eos % (Auto) 2.4 % (0-4) 09/02/20 13:10 Baso % (Auto) 0.2 % (0-2) 09/02/20 13:10 Lymph # (Auto) 1.3 X10*3/uL (1.2-4.9) 09/02/20 13:10 [place] # (Auto) 0.6 X10*3/uL (0.1-1.2) 09/02/20 13:10 Eos # (Auto) 0.2 X10*3/uL (0.0-0.4) 09/02/20 13:10 Baso # (Auto) 0.0 X10*3/uL (0.0-0.2) 09/02/20 13:10 Abs Immat Gran (auto) 0.04 X10*3/uL (0.00-0.03) H 09/02/20 13:10 Absolute Neuts (auto) 6.6 X10*3/uL (2.0-8.3) 09/02/20 13:10 Absolute Nucleated RBC 0.000 X10*3/uL (0.0-0.012) 09/02/20 13:10 Nucleated RBC % (auto) 0.0 /100WBC (0.0-0.2) 09/02/20 13:10 PT 11.4 SEC (10.8-13.0) 09/01/20 19:48 INR 1.0 (0.9-1.1) 09/01/20 19:48 APTT 34.8 SEC (24.1-38.0) 09/01/20 19:48 Sodium 138 mmol/L (135-145) 09/02/20 13:10 Potassium 4.0 mmol/l (3.3-5.1) 09/02/20 13:10 Chloride 107 mmol/L (96-108) 09/02/20 13:10 Carbon Dioxide 21 mmol/L (22-29) L 09/02/20 13:10 Anion Gap 14 (-20) 09/02/20 13:10 BUN 11 mg/dL (9-16) 09/02/20 13:10 Creatinine 0.90 mg/dL (0.5-1.4) 09/02/20 13:10 Estim Creat Clear Calc 111.2 09/02/20 13:10 Estimated GFR > 60 09/02/20 13:10 Random Glucose 80 mg/dL (60-115) 09/02/20 13:10 Lactic Acid 1.9 mmol/L (0.5-2.0) 09/01/20 19:48 Calcium 8.6 mg/dL (8.4-10.2) D 09/02/20 13:10 Magnesium 1.7 mg/dL (1.6-2.6) 09/01/20 19:48 Total Bilirubin 0.6 mg/dL (0.0-1.0) 09/01/20 19:48 Direct Bilirubin 0.2 mg/dL (0.0-0.5) 09/01/20 19:48 GGT 83 U/L (11-51) H 09/01/20 19:48 AST 24 U/L (5-37) 09/01/20 19:48 ALT 23 U/L (0-40) 09/01/20 19:48 Alkaline Phosphatase 82 U/L (39-117) 09/01/20 19:48 Lactate Dehydrogenase 156 U/L (118-273) 09/01/20 19:48 Troponin I High Sens < 3.5 ng/L (<3.5-35.0) 09/01/20 19:48 C-Reactive Protein 1.17 mg/dL (< or = 0.50) H 09/01/20 19:48 Total Protein 7.1 g/dL (6.5-8.0) 09/01/20 19:48 Albumin 4.8 g/dL (3.5-5.0) 09/01/20 19:48 Lipase 11 U/L (8-78) 09/01/20 19:48 Urine Color YELLOW 09/01/20 20:08 Urine Appearance CLEAR 09/01/20 20:08 Urine pH 7.5 (5.0-8.0) 09/01/20 20:08 Ur Specific [place] 1.020 (1.005-1.025) 09/01/20 20:08 Urine Protein NEG MG/DL (NEG-TRACE) 09/01/20 20:08 Urine Glucose (UA) NEG MG/DL (NEG) 09/01/20 20:08 Urine Ketones NEG MG/DL (NEG) 09/01/20 20:08 Urine Blood NEG (NEG) 09/01/20 20:08 Urine Nitrite NEG (NEG) 09/01/20 20:08 Ur Leukocyte Esterase NEG (NEG) 09/01/20 20:08 Coronavirus (PCR) NEGATIVE (Negative) 09/01/20 19:48 Influenza Type A (PCR) NEGATIVE (Negative) 09/01/20 19:48 Influenza Type B (PCR) NEGATIVE (Negative) 09/01/20 19:48 RSV RNA Qual (PCR) NEGATIVE (Negative) 09/01/20 19:48 Preliminary micro results at discharge 09/01/20 19:50 Blood Culture - Preliminary Blood - Venous No growth after 24 hours. 09/01/20 19:48 Blood Culture - Preliminary Blood - Venous No growth after 24 hours. Discharge Plan Discharge Anticipated Discharge Date/Time: 09/03/20 08:57 Patient Disposition: Home, Self-Care Referrals: Physician,Unknown [Primary Care Provider] - Discharge Medications: New oxycodone 5 mg tablet 5 mg PO Q8H PRN (Reason: pain) Qty: 10 RF: 0 No Action fenofibrate micronized 67 mg capsule 67 mg PO DAILY Qty: 90 RF: 0 fenofibrate micronized 67 mg capsule 67 mg PO DAILY Qty: 90 RF: 3 eszopiclone 2 mg tablet 2 mg PO BEDTIME RF: 0 Afluria Qd 2020-21(3yr up)(PF) 60 mcg (15 mcg x 4)/0.5 mL syringe IM RF: 0 magnesium oxide 250 mg magnesium tablet 250 mg PO DAILY RF: 0 glucosamine sulfate [Glucosamine] 500 mg tablet 500 mg PO DAILY RF: 0 levofloxacin 750 mg tablet 750 mg PO DAILY Qty: 5 RF: 0 metronidazole 500 mg tablet 500 mg PO Q8H Qty: 15 RF: 0 oxycodone 5 mg capsule 5 mg PO BID PRN (Reason: pain, severe) Qty: 5 RF: 0 Discharge Orders: Discharge Order (Routine); Ordered 09/03/20 Ordered By: Ashkan Richardson Diet: advance to usual diet Activity on Discharge: As tolerated Stand Alone Forms: Work/School Release Discharge Date/Time: 09/03/20 11:30 Visit Report Forms: Patient Portal Discharge page Care Plan Goals: resolution of diverticulitis Health Concerns: diverticulitis Plan of Treatment: Take Flagyl and Levaquin as prescribed and follow up with your Doctor in one week, call for appointment
--- NOTE | 2020-09-03 09:10 | MHC.CM.PN ---
PATIENT IS DISCHARGED HOME WITH NO SERVICES. DAD TO TRANSPORT. RN AWARE OF PLAN
[2020-09-03] MEDS: metroNIDAZOLE/NS 500 MG/100 ML PIGGYBACK 100 MG IV (09:21)
== END 2020-09-03 11:30 | disposition home or self-care (01) | DRG 720 ==
LOC: HO.ED 09-02 08:16 → HO.S3 09-02 11:42
PROVIDERS: Internal Medicine Gastroenterology; Nurse Practitioner Family; Admitting Provider Internal Medicine; Emergency Provider Emergency Medicine Emergency Medical Services; Visit Provider Internal Medicine
DX: A41.4 Sepsis due to anaerobes (principal); K57.32 Diverticulitis of large intestine without perforation or abscess without bleeding; Z20.828 Contact with and (suspected) exposure to other viral communicable diseases; Z88.0 Allergy status to penicillin; Z79.899 Other long term (current) drug therapy
CPT/HCPCS: 0241U; 36415; 71045; 74177; 80048; 80076; 81003; 82977; 83605; 83615; 83690; 83735; 84484; 85025; 85610; 85730; 86140; 87040; 93005; 96365; 96367; 96375; 96376; 99285; 99291; J1170; J1885; J1956; J2270; J2405; J2543; Q9967

== ENCOUNTER 2020-09-18 12:18 | Outpatient (REF) | payer BC, SELFPAY ==
[2020-09-18 13:33] LABS: MANUAL DIFF FLAG NO
[2020-09-18 13:35] LABS: Basophils Absolute Auto 0.1 X10*3/uL (0.0-0.2); Basophils Percent Auto 0.7 % (0-2); Eosinophils Absolute Auto 0.2 X10*3/uL (0.0-0.4); Eosinophils Percent Auto 2.6 % (0-4); Hemoglobin 16.2 g/dl (14.0-18.0); Imm Gran Abs Auto 0.02 X10*3/uL (0.00-0.03); Imm Gran Pct Auto 0.2 % (0.0-0.4); Lymphocytes Absolute Auto 2.5 X10*3/uL (1.2-4.9); Lymphocytes Percent Auto 28.5 % (20-40); Mean Corpuscular HGB Conc 34.5 g/dl (31.0-36.0); Mean Corpuscular Hemoglobin 32.3 pg (27.0-33.0); Mean Corpuscular Volume 93.6 fL (80-98); Mean Platelet Volume 9.8 fL (9.4-12.4); Monocytes Absolute Auto 0.5 X10*3/uL (0.1-1.2); Monocytes Percent Auto 5.7 % (2-11); Neutrophils Absolute Auto 5.6 X10*3/uL (2.0-8.3); Neutrophils Percent Auto 62.3 % (45-73); Platelet Count 357 X10*3/uL (160-400); Red Blood Count 5.02 X10*6/uL (4.60-5.80); Red Cell Distribution Width 11.2 % (11.0-16.0); White Blood Count 8.9 X10*3/uL (4.8-10.8)
[2020-09-18 14:11] LABS: Alanine Aminotransferase 19 U/L (0-40); Albumin Level 4.7 g/dL (3.5-5.0); Alkaline Phosphatase 71 U/L (39-117); Anion Gap 12 (12-20); Aspartate Amino Transferase 21 U/L (5-37); Bilirubin Total 0.4 mg/dL (0.0-1.0); Blood Urea Nitrogen 24 mg/dL (9-16); Calcium 9.5 mg/dL (8.4-10.2); Carbon Dioxide 28 mmol/L (22-29); Chloride 106 mmol/L (96-108); Estimated Glomerular Filt Rate > 60; Glucose Random 93 mg/dL (60-115); Potassium 4.5 mmol/l (3.3-5.1); Sodium 141 mmol/L (135-145); Total Protein 7.1 g/dL (6.5-8.0)
== END 2020-09-18 12:19 | disposition home or self-care (01) ==
LOC: HO.HMGCLDS 12:18
PROVIDERS: PCP Internal Medicine; Visit Provider Internal Medicine
DX: K57.32 Diverticulitis of large intestine without perforation or abscess without bleeding (principal); R10.32 Left lower quadrant pain
CPT/HCPCS: 36415; 80053; 85025

== ENCOUNTER 2020-10-31 15:29 | Outpatient (REF) | payer BC, SELFPAY | END 2020-10-31 15:30 | disposition home or self-care (01) | LOC: HO.CT 15:29 | PROVIDERS: Visit Provider Internal Medicine Gastroenterology | DX: Z13.89 Encounter for screening for other disorder (principal) ==

== ENCOUNTER 2020-11-06 10:59 | Outpatient (REF) | payer BC, SELFPAY ==
--- NOTE | ~2020-11-06 | CT_ITS ---
EXAMINATION: CT ABDOMEN AND PELVIS WITH CONTRAST CLINICAL INFORMATION: Diverticulitis of the large intestine. COMPARISON: 09/01/2020 TECHNIQUE: Multidetector volumetric images were obtained from the superior aspect of the liver through the pubic symphysis following administration 85 mL of Omnipaque 350 intravenous contrast. Sagittal and coronal reformatted images were obtained on the technologist's workstation. Oral contrast: Yes This CT examination was performed using dose optimization techniques as appropriate, variously including the following: *Automated exposure control *Adjustment of mA and/or kV according to patient size (this includes techniques or standardized protocols for targeted exams where dose is matched to indication/reason for exam; i.e. extremities or head) *Use of iterative reconstruction technique DLP: 383 mGy-cm FINDINGS: LUNG BASES: The visualized lung bases are unremarkable. LIVER, GALLBLADDER, AND BILIARY TREE: The liver is normal in size, shape, and attenuation. No focal hepatic lesion or biliary ductal dilatation is present. The gallbladder is unremarkable with no evidence of radiopaque gallstones, gallbladder wall thickening, or obvious pericholecystic inflammatory changes. PANCREAS: Unremarkable. SPLEEN: Unremarkable. ADRENAL GLANDS: Unremarkable. KIDNEYS AND URETERS: The kidneys are normal in size, shape, and attenuation. No hydronephrosis, hydroureter, or calculi seen. No perinephric stranding. BLADDER: Unremarkable. GASTROINTESTINAL TRACT: Mild wall thickening of the distal esophagus. Correlate for esophagitis. The stomach is unremarkable. Normal caliber small bowel. There is no obstruction. There is a normal appendix. Contrast is seen throughout the colon. There is no acute colonic wall thickening or inflammation. There is diverticulosis seen involving the descending and sigmoid colon. No adjacent inflammatory change. No free air or free fluid. Prior area of diverticulitis in the sigmoid colon has resolved. ABDOMINAL WALL: No significant hernia is appreciated. LYMPH NODES: Normal. VASCULAR: Unremarkable. PELVIC VISCERA: The prostate and seminal vesicles are unremarkable. OSSEOUS STRUCTURES: No acute or suspicious osseous abnormality. CT/CT abdomen pelvis w con IMPRESSION: Resolution of previous colonic diverticulitis. There is redemonstration of diverticulosis throughout the descending and sigmoid colon. No acute diverticulitis.
[2020-11-06] MEDS: iohexoL 350 MG/ML 100 ML INFUS..BTL IV (12:04)
== END 2020-11-06 11:00 | disposition home or self-care (01) ==
LOC: HO.CT 10:59
PROVIDERS: Visit Provider Internal Medicine Gastroenterology
DX: R10.32 Left lower quadrant pain (principal); K57.32 Diverticulitis of large intestine without perforation or abscess without bleeding
CPT/HCPCS: 74177; Q9967

== ENCOUNTER 2020-12-05 08:30 | Day surgery (SDC) | payer BC, SELFPAY ==
[2020-12-01 12:41] VITALS: BMI 26.4
[2020-12-05 08:34] VITALS: BP 143/101; PULSE 87; TEMP 36.2; O2SAT 98
[2020-12-05 08:45] VITALS: PULSE 75; RESP 18; TEMP 36.6; O2SAT 98
--- NOTE | 2020-12-05 09:01 | HO.ANESPROP2 ---
HPI - Anesthesia Eval Consult details Narrative: 40 year old male patient here for colonoscopy PMFSH Active Problems Active Problems: All Active Problems (Updated 09/18/20 @ 11:29 by Yennifer Schilling MD) Left lower quadrant abdominal pain (Acute) Hypertriglyceridemia (Acute) Insomnia (Acute) Diverticulitis of sigmoid colon (Acute) Diverticulitis (Acute) Past Medical History Medical History Diverticulitis of sigmoid colon Hernia Hypertriglyceridemia Insomnia Left lower quadrant abdominal pain Family History Family History Father Depression Mother Brain tumor Brother No problems noted. Brother No problems noted. Family history of problems with anesthesia: No Surgical History Surgical History History of fracture of nose History of umbilical hernia repair History of Problems with Anesthesia: No Social History Social History (Updated 12/05/20 @ 09:07 by Sherie Ramos) Household Members: Family Housing: Apartment Smoking Status: Current every day smoker Tobacco Type: Cigarette Smoked in Last 30 Days: Yes Advance Directives: No Advance Directives Information Provided: No Advance Directives on File: No Recently lost weight without trying: No service: No Current occupational status: employed Meds Allergies Allergy/AdvReac Type Severity Reaction Status Date / Time amoxicillin [AMOXICILLIN] Allergy Unknown UNKNOWN, Verified 12/01/20 12:37 unsure, happened as a child Active Medications: Current Medications Generic Name Dose Route Start Last Admin Trade Name Freq PRN Reason Stop Dose Admin Lactated Ringer's 1,000 mls @ 100 mls/hr 12/05/20 09:00 Lr IVCONT .Q10H [facility] Home Medications Medication Instructions Recorded Confirmed Last Taken Type eszopiclone 2 mg tablet 2 mg PO BEDTIME 09/18/20 12/01/20 Unknown History flu vac [id number] 36mos up(PF) ml IM 09/18/20 09/18/20 Unknown History glucosamine sulfate 500 mg tablet 500 mg PO DAILY 09/18/20 12/01/20 Unknown History magnesium oxide 250 mg PO DAILY 09/18/20 12/01/20 Unknown History Exam Exam Date and Time: December 05, 2020 09 Height,Weight and Vital Signs: Height 5 ft 9 in Weight 81.193 kg Last Vital Signs Temp 98 F 12/05/20 08:45 Pulse 75 12/05/20 08:45 Resp 18 12/05/20 08:45 BP 143/101 H 12/05/20 08:34 Pulse Ox 98 12/05/20 08:45 Vital Signs Temp Pulse Resp BP Pulse Ox 12/05/20 08:45 98 F 75 18 98 12/05/20 08:34 97.1 F 87 143/101 H 98 Airway Mallampati Class: II TM Dist: >3cm Neck ROM: Full Heart: RRR Lungs: CTAB Assessment and Plan Assessment Anesthesia Assessment: Anesthesia Plan Discussed and Chart Reviewed Final Anesthetic Review NPO: Yes ASA Class: II Final Preanesthetic Review: No Changes in Pt Med Stat, Meds/Allgs Chart Reviewed, Consent Obtained/Reviewed and Anes Risks/Benef Reviewed Patient Risk: Low Procedure Risk: Low Assessment/Block/Sedation in SS: Assess/Block/Sedation-SS Anesthetic Plan Anesthetic Plan: MAC: Disposition: Standard PACU
--- NOTE | 2020-12-05 09:09 | MHC.SHP ---
Pre-Procedural Eval Section B Chief Complaint: diverticulitis Details of Present Illness: see H&P no changes Relevant Family History (Specify if Yes): No Relevant Social History: Tobacco Use Present Medications: see Short Stay Collaborative assessment Medical History: No relevant PMH History of Previous Operations: No relevant previous surgery Allergies: Allergies Allergy/AdvReac Type Severity Reaction Status Date / Time amoxicillin [AMOXICILLIN] Allergy Unknown UNKNOWN, Verified 12/01/20 12:37 unsure, happened as a child Review of Systems Sugical H&P ROS: Negative: Constitution, Cardiovascular, Respiratory, Neurological, Psychiatric, Hem-Onc, Allergic/Immunologic, Gastrointestinal, Genitourinary, Musculoskeletal, Integumentary, Endocrine and Eyes/Ears/Nose/Throat Exam Surgical H&P Exam: Normal: HEENT, Normal: Heart, Normal: Lungs, Normal: Extremities, Normal: Abdomen, Normal: Skin and Normal: Neurological Plan Diagnosis/Plan: Unchanged I have reviewed the history and physical and performed a pertinent physical examination on my patient. No changes have occurred unless specified.
[2020-12-05] MEDS: Lactated Ringers 1,000 ML 100 ML IVCONT (09:13)
--- NOTE | 2020-12-05 09:36 | PM.OP ---
Brief Operative Note Date of Service: 12/05/20 Pre-op diagnosis: diverticulitis Post-op diagnosis: same Procedure: colonoscopy Surgeon: Wolf Chowdary Anesthesia: MAC Estimated blood loss (mL): 2 Pathology: other (sigmoid bxs) Condition: stable Disposition: PACU
[2020-12-05 09:40] VITALS: BP 99/51; PULSE 73; RESP 17; TEMP 36.2; O2SAT 95
[2020-12-05 09:55] VITALS: BP 101/55; PULSE 61; RESP 18; TEMP 36.2; O2SAT 97
--- NOTE | 2020-12-05 10:00 | OP_ITS ---
SURGEON: Wolf Chowdary MD INDICATIONS: Diverticulitis. PREOPERATIVE DIAGNOSIS: POSTOPERATIVE DIAGNOSIS: PROCEDURE PERFORMED: Colonoscopy to the terminal ileum with biopsy. ESTIMATED BLOOD LOSS: COMPLICATIONS: ANESTHESIA: ASSISTANTS: SPECIMENS: MEDICATIONS: Monitored anesthesia care. DESCRIPTION OF PROCEDURE: The history and physical performed. The risks and benefits of the procedure were explained to the patient. Informed consent was obtained. The patient was placed in the left lateral decubitus position. A digital rectal exam was performed and was found to be normal. The Olympus pediatric video colonoscope was introduced into the rectum and advanced to the cecum without difficulty. The cecum was identified by transillumination, palpation, and identification of ileocecal valve. Examination was performed and the scope was removed. He tolerated the procedure well and was taken to recovery area in stable condition. FINDINGS: The terminal ileum was normal. The visualized colonic mucosa was normal. The quality of the prep was good except in the right colon, where there was a liquid stool, which was tenacious coating the mucosa. This was washed and suctioned as best possible, but tended to clogged the scope making suctioning difficult. No polyps were identified. There was a single diverticulum seen in the right colon. Moderate sigmoid diverticulosis was noted. There was no evidence of diverticulitis. Retroflexed examination showed small internal hemorrhoids. Sigmoid biopsies were obtained to rule out microscopic colitis. IMPRESSION: Diverticulosis. RECOMMENDATION: Follow up the biopsy results. Screening colonoscopy in 10 years. MD JOHANNY James/GABI / [id number] MTDD
== END 2020-12-05 10:21 | disposition home or self-care (01) ==
PROVIDERS: PCP Internal Medicine; Visit Provider Internal Medicine Gastroenterology
PROC: 0DJD8ZZ Inspection of Lower Intestinal Tract, Via Natural or Artificial Opening Endoscopic (ICD-10-PCS; CPT 45378; principal; 2020-12-05 09:30)
DX: K57.30 Diverticulosis of large intestine without perforation or abscess without bleeding (principal); R10.32 Left lower quadrant pain; K64.8 Other hemorrhoids; F17.210 Nicotine dependence, cigarettes, uncomplicated; Z88.0 Allergy status to penicillin
CPT/HCPCS: 45380; 88305

== ENCOUNTER 2021-02-16 09:10 | Outpatient (REF) | payer BC, SELFPAY ==
[2021-02-16 12:02] LABS: Alanine Aminotransferase 26 U/L (0-40); Anion Gap 15 (12-20); Aspartate Amino Transferase 27 U/L (5-37); Blood Urea Nitrogen 19 mg/dL (9-16); Calcium 9.3 mg/dL (8.4-10.2); Carbon Dioxide 24 mmol/L (22-29); Chloride 110 mmol/L (96-108); Cholesterol 269 mg/dL; Estimated Glomerular Filt Rate > 60; Glucose Fasting 87 mg/dL (60-99); HDL Cholesterol 45 mg/dL; Potassium 4.4 mmol/L (3.3-5.1); Sodium 145 mmol/L (135-145); Triglycerides 429 mg/dL
== END 2021-02-16 09:11 | disposition home or self-care (01) ==
LOC: HO.HMGCLDS 09:10
PROVIDERS: PCP Internal Medicine; Visit Provider Internal Medicine
DX: Z00.01 Encounter for general adult medical examination with abnormal findings (principal); E78.1 Pure hyperglyceridemia; G47.00 Insomnia, unspecified; I10 Essential (primary) hypertension
CPT/HCPCS: 36415; 80048; 80061; 84450; 84460

== ENCOUNTER 2022-02-20 08:21 | Outpatient (REF) | payer BC, SELFPAY ==
[2022-02-20 11:11] LABS: MANUAL DIFF FLAG NO
[2022-02-20 11:14] LABS: Basophils Percent Auto 0.8 % (0-2); Eosinophils Absolute Auto 0.2 X10*3/uL (0.0-0.4); Eosinophils Percent Auto 3.9 % (0-4); Hematocrit 46.7 % (42.0-52.0); Hemoglobin 16.3 g/dl (14.0-18.0); Imm Gran Abs Auto 0.02 X10*3/uL (0.00-0.03); Imm Gran Pct Auto 0.4 % (0.0-0.4); Lymphocytes Absolute Auto 2.1 X10*3/uL (1.2-4.9); Lymphocytes Percent Auto 39.9 % (20-40); Mean Corpuscular HGB Conc 34.9 g/dl (31.0-36.0); Mean Corpuscular Hemoglobin 32.7 pg (27.0-33.0); Mean Corpuscular Volume 93.6 fL (80.0-98.0); Mean Platelet Volume 10.2 fL (9.4-12.4); Monocytes Absolute Auto 0.4 X10*3/uL (0.1-1.2); Monocytes Percent Auto 7.8 % (2-11); Neutrophils Absolute Auto 2.4 x10*3/uL (2.0-8.3); Neutrophils Percent Auto 47.2 % (45-73); Platelet Count 253 X10*3/uL (160-400); Red Blood Count 4.99 X10*6/uL (4.60-5.80); Red Cell Distribution Width 11.4 % (11.0-16.0); White Blood Count 5.1 X10*3/uL (4.8-10.8)
[2022-02-20 11:46] LABS: Alanine Aminotransferase 24 U/L (0-40); Albumin Level 4.5 g/dL (3.5-5.0); Alkaline Phosphatase 74 U/L (39-117); Aspartate Amino Transferase 24 U/L (5-37); Bilirubin Direct < 0.2 mg/dL (0.0-0.5); Bilirubin Total 0.3 mg/dL (0.0-1.0); Cholesterol 271 mg/dL; HDL Cholesterol 40 mg/dL; LDL Cholesterol Calculated 176 mg/dl; Lipase 28 U/L (8-78); Triglycerides 275 mg/dL
[2022-02-20 11:50] LABS: Amylase 75 U/L (28-100)
== END 2022-02-20 08:22 | disposition home or self-care (01) ==
LOC: HO.HMGCLDS 08:21
PROVIDERS: PCP Internal Medicine; Visit Provider Internal Medicine
DX: R10.9 Unspecified abdominal pain (principal); E78.1 Pure hyperglyceridemia
CPT/HCPCS: 36415; 80061; 80076; 82150; 83690; 85025

== ENCOUNTER 2023-09-19 14:46 | Outpatient (REF) | payer BC, SELFPAY ==
--- NOTE | ~2023-09-19 | CT_ITS ---
EXAMINATION: CT ABDOMEN AND PELVIS WITH CONTRAST CLINICAL INFORMATION: Left lower quadrant pain COMPARISON: CT abdomen pelvis 11/06/2020 TECHNIQUE: Multidetector volumetric images were obtained from the superior aspect of the liver through the pubic symphysis following administration 85 mL of Omnipaque 350 intravenous contrast. Sagittal and coronal reformatted images were obtained on the technologist's workstation. Oral contrast: No This CT examination was performed using dose optimization techniques as appropriate, variously including the following: *Automated exposure control *Adjustment of mA and/or kV according to patient size (this includes techniques or standardized protocols for targeted exams where dose is matched to indication/reason for exam; i.e. extremities or head) *Use of iterative reconstruction technique DLP: 564 mGy-cm FINDINGS: LUNG BASES: The visualized lung bases are unremarkable. LIVER, GALLBLADDER, AND BILIARY TREE: The liver is enlarged measuring 19 cm in cephalocaudad dimension with decreased attenuation consistent with hepatic steatosis. Tiny 3 mm hypodensity seen just beneath the dome of the right hemidiaphragm consistent with a tiny cyst but indeterminate because of its small size. This is unchanged when compared to 11/06/2020 (3:3 compare prior 6:72). No focal hepatic lesion or biliary ductal dilatation is present. The gallbladder is unremarkable with no evidence of radiopaque gallstones, gallbladder wall thickening, or obvious pericholecystic inflammatory changes. PANCREAS: Unremarkable. SPLEEN: Unremarkable. ADRENAL GLANDS: Unremarkable. KIDNEYS AND URETERS: The kidneys are normal in size, shape, and attenuation. No hydronephrosis, hydroureter, or calculi seen. No perinephric stranding. BLADDER: Unremarkable. GASTROINTESTINAL TRACT: A small hiatal hernia is present. Sigmoid diverticulosis is present without definite evidence of diverticulitis. The small and large bowel are otherwise unremarkable. The appendix is unremarkable. ABDOMINAL WALL: No significant hernia is appreciated. Tiny bilateral inguinal hernias seen containing only fat. LYMPH NODES: No retroperitoneal lymphadenopathy. VASCULAR: Unremarkable. PELVIC VISCERA: The prostate and seminal vesicles are unremarkable. OSSEOUS STRUCTURES: Unremarkable. CT/CT abdomen pelvis w IV con IMPRESSION: Incidental note made of an enlarged fatty liver, small hiatal hernia, sigmoid diverticulosis and tiny bilateral inguinal hernias containing only fat. Fleischner guidelines were followed.
[2023-09-19] MEDS: iohexoL 350 MG/ML 100 ML INFUS..BTL 85 ML IV (16:59)
[2023-09-19] MEDS: Barium Sulfate Oral (Berry) 450 ML ORAL.SUSP 900 ML PO (17:01)
== END 2023-09-19 14:47 | disposition home or self-care (01) ==
LOC: HO.CT 14:46
PROVIDERS: PCP Internal Medicine; Visit Provider Internal Medicine
DX: R10.32 Left lower quadrant pain (principal)
CPT/HCPCS: 74177; Q9967